=== PATIENT | male | born 2000 | race Caucasian/White ===

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

== ENCOUNTER 2019-02-27 17:58 | Emergency (ER) | payer BC | END 2019-02-27 18:57 | disposition home or self-care (01) | LOC: SCSER 17:58 | DX: S06.0X0A Concussion without loss of consciousness, initial encounter (principal); F90.9 Attention-deficit hyperactivity disorder, unspecified type; W18.30XA Fall on same level, unspecified, initial encounter | CPT/HCPCS: 99283 ==